=== PATIENT | male | born 2000 | race African-American/Black ===

== ENCOUNTER 2022-08-01 10:48 | Emergency (ER) | payer OTHER ==
[~2022-08-01] VITALS: Ht 175.3 cm; Wt 100.0 kg
[2022-08-01] MEDS ORDERED: LIDOcaine 1% 30ml preserv. free vial IJ ONE (11:10)
[2022-08-01] MEDS ORDERED: bacitracin 15gm ointment TP ONE (11:10)
[2022-08-01 11:17] VITALS: BP 181/153
[2022-08-01] MEDS ORDERED: IBUP-1986 PO (12:14)
[2022-08-01] MEDS ORDERED: HYDROcodone/acetaminophen 10/325mg tab PO ONE (12:15)
== END 2022-08-01 12:33 | disposition home or self-care (01) ==
LOC: ER 10:49
DX: S61.213A Laceration without foreign body of left middle finger without damage to nail, initial encounter (principal); S61.217A Laceration without foreign body of left little finger without damage to nail, initial encounter; W22.8XXA Striking against or struck by other objects, initial encounter; Y93.89 Activity, other specified; Y92.89 Other specified places as the place of occurrence of the external cause; Y99.8 Other external cause status
CPT/HCPCS: 12002; 73130; 99283; A6449